=== PATIENT | female | born 1960 | race Caucasian/White ===

== ENCOUNTER 2018-08-07 16:08 | Emergency (ER) | payer MEDICARE ==
[~2018-08-07 16:08] MED LIST: ASPI-1012 PO; ATOR20TA65 PO; GABA-533 PO; LISI-613 PO; METF-446 PO; METO-391 PO; SITA50TA PO; TRAM50TA4 PO
[2018-08-07] MEDS ORDERED: ACETAMINOPHEN EXTRA STRENGTH 500 MG TABLET ONE (16:44)
[2018-08-07] MEDS ORDERED: TETANUS/DIPHTHERIA TOXOID [ADULT] 0.5 ML VIAL IM ONE (16:45)
[2018-08-07] MEDS ORDERED: IBUPROFEN 600 MG TABLET ONE (16:50)
== END 2018-08-07 17:49 | disposition home or self-care (01) ==
LOC: EDH 16:08
DX: S50.11XA Contusion of right forearm, initial encounter (principal); S00.83XA Contusion of other part of head, initial encounter; S39.82XA Other specified injuries of lower back, initial encounter; I10 Essential (primary) hypertension; I25.10 Atherosclerotic heart disease of native coronary artery without angina pectoris; E11.9 Type 2 diabetes mellitus without complications; Z96.641 Presence of right artificial hip joint; Z88.0 Allergy status to penicillin; Z91.048 Other nonmedicinal substance allergy status; Z88.5 Allergy status to narcotic agent; Z79.4 Long term (current) use of insulin; W18.39XA Other fall on same level, initial encounter; Y93.89 Activity, other specified; Y92.89 Other specified places as the place of occurrence of the external cause; Y99.8 Other external cause status
CPT/HCPCS: 90714

== ENCOUNTER 2018-11-27 16:20 | Inpatient (IN) | payer MEDICARE ==
[~2018-11-27] VITALS: Ht 172.7 cm; Wt 76.7 kg
[2018-11-27] MEDS ORDERED: HYDROMORPHONE 1 MG/1 ML AMP ONE ×2 (16:49→20:39)
[2018-11-27] MEDS ORDERED: ONDANSETRON HCL 4 MG/2 ML VIAL ONE ×2 (16:49→19:05)
[2018-11-27 16:57] LABS: BASOPHILS % (AUTO) 1.1 % (0.0-5.0); EOSINOPHILS % (AUTO) 3.8 % (0.0-8.0); HEMATOCRIT 34.8 % (36-48); LYMPHOCYTES % (AUTO) 23.8 % (21.0-51.0); MEAN CORPUSCULAR HEMOGLOBIN 30.8 pg (27.0-33.0); MEAN CORPUSCULAR HGB CONC 34.5 g/dL (32.0-36.0); MEAN CORPUSCULAR VOLUME 89.1 fL (79-99); MONOCYTES % (AUTO) 7.5 % (3.0-13.0); NEUTROPHILS % (AUTO) 63.8 % (40.0-77.0); NUCLEATED RED BLOOD CELLS 0.1 % (0.0-0.19); PLATELET COUNT (AUTO) 251 K/uL (130-400); RED BLOOD CELL COUNT(AUTO) 3.91 MIL/uL (4.00-5.50); RED CELL DISTRIBUTION WIDTH 12.9 % (11.0-15.5); WHITE BLOOD COUNT (AUTO) 7.9 K/uL (4.8-10.8)
[2018-11-27 17:07] LABS: CREATININE 1.1 mg/dL (0.5-1.5); POTASSIUM 4.4 mmol/L (3.5-5.1)
[2018-11-27 17:09] LABS: INR 0.89 (0.85-1.15); PARTIAL THROMBOPLASTIN TIME 26.4 SEC (26.3-35.5); PROTHROMBIN TIME 9.4 SEC (9.6-11.6)
[2018-11-27 17:12] LABS: ALBUMIN 2.8 g/dL (3.5-5.0); BILIRUBIN,TOTAL 0.3 mg/dL (0.2-1.0); TOTAL PROTEIN, SERUM 6.8 g/dL (6.0-8.3)
[2018-11-27] MEDS ORDERED: ACETAMINOPHEN 325 MG TAB PO PRN (19:45)
[2018-11-27] MEDS ORDERED: MORPHINE SULFATE 2 MG/ML 1ML SYG IV PRN (19:45)
[2018-11-27] MEDS: FAMOTIDINE 20MG TAB 20 MG TAB PO SCH (21:00)
[2018-11-27] MEDS ORDERED: FAMOTIDINE 20MG TAB 20 MG TAB PO SCH (21:00)
[2018-11-27 21:28] VITALS: BP 188/96
[2018-11-27] MEDS ORDERED: DEXTROSE 50%-WATER 50 ML DISP.SYRIN IV PRN (21:30)
[2018-11-27] MEDS ORDERED: GLUCAGON 1MG KIT 1 MG ML IM PRN (21:30)
[2018-11-27] MEDS ORDERED: MORPHINE-NS 50 MG/50 ML 50 ML IV ONE (21:45)
[2018-11-27] MEDS ORDERED: INSU100V12 SQ (22:10)
[2018-11-27] MEDS ORDERED: GABA-533 PO (22:11)
[2018-11-27] MEDS ORDERED: GABA800T9 PO (22:11)
[2018-11-27] MEDS ORDERED: ASPI-555 PO (22:11)
[2018-11-27] MEDS ORDERED: MORPHINE-NS 50 MG/50 ML 50 ML IV PRN (22:15)
[2018-11-27] MEDS: HYDROMORPHONE 1 MG/1 ML AMP IV PRN (23:09)
[2018-11-27] MEDS ORDERED: ENOXAPARIN SODIUM 30 MG/0.3 ML SQ ONE (23:10)
[2018-11-27] MEDS: ALPRAZOLAM 0.5 MG TABLET PO PRN (23:11)
[2018-11-27] MEDS: ENOXAPARIN SODIUM 30 MG/0.3 ML SQ SCH (23:15)
[2018-11-27 23:26] VITALS: BP 158/83
[2018-11-28] VITALS (7 sets, daily range): BP systolic 150–193; BP diastolic 75–97
[2018-11-28] MEDS ORDERED: CALCIUM CARBON 500MG CHEW TAB PO PRN (04:15)
[2018-11-28 04:42] LABS: HEMATOCRIT 28.9 % (36-48); MEAN CORPUSCULAR HEMOGLOBIN 30.8 pg (27.0-33.0); MEAN CORPUSCULAR HGB CONC 34.9 g/dL (32.0-36.0); MEAN CORPUSCULAR VOLUME 88.3 fL (79-99); PLATELET COUNT (AUTO) 257 K/uL (130-400); RED BLOOD CELL COUNT(AUTO) 3.27 MIL/uL (4.00-5.50)
[2018-11-28 05:05] LABS: ALBUMIN 2.5 g/dL (3.5-5.0); BILIRUBIN,TOTAL 0.3 mg/dL (0.2-1.0); CREATININE 1.2 mg/dL (0.5-1.5); POTASSIUM 4.3 mmol/L (3.5-5.1)
[2018-11-28] MEDS: INSULIN HUMULIN R 100 UNIT/ML 3ML SQ SCH ×4 (05:39→21:12)
[2018-11-28] MEDS ORDERED: CEFAZOLIN SODIUM 1 GM VIAL IVP PRN (06:00)
[2018-11-28] MEDS ORDERED: GABAPENTIN 100 MG CAPSULE PO SCH (09:00)
[2018-11-28] MEDS ORDERED: ***HM***Metoprolol Succinate 50 MG PO SCH (09:00)
[2018-11-28] MEDS ORDERED: ENOXAPARIN SODIUM 30 MG/0.3 ML SQ SCH (09:00)
[2018-11-28] MEDS: ENOXAPARIN SODIUM 30 MG/0.3 ML SQ SCH ×2 (09:00→21:08)
[2018-11-28] MEDS: ASPIRIN 81MG TAB.CHEW PO SCH (09:50)
[2018-11-28] MEDS: LISINOPRIL 20 MG TABLET PO SCH (09:51)
[2018-11-28] MEDS: FAMOTIDINE 20MG TAB 20 MG TAB PO SCH ×2 (09:51→21:05)
--- NOTE | 2018-11-28 10:01 | NUR ---
MEDICATION NON-ADMINISTRATION DID NOT ADMINISTER SCHEDULED METOPROLOL SUCCINATE 50 MG PO DAILY BECAUSE PATIENT STATES "I DON'T TAKE THAT MEDICATIONS, I STOPPED TAKING IT 2 YEARS AGO BECAUSE IT GAVE ME BAD DIARRHEA." DID NOT ADMINISTER SCHEDULED NEURONTIN 400MG PO AM BECAUSE PATIENT STATES "I ONLY TAKE NEURONTIN 800MG AT NIGHTTIME, I DON'T TAKE ANY IN THE MORNINGS." DID NOT ADMINISTER LOVENOX 30MG SQ DAILY BECAUSE PATIENT STATES "I'M NOT GETTING THAT MEDICATION RIGHT NOW, ITS SUPPOSED TO BE EVERY 24 HOURS AND THEY JUST GAVE IT TO ME LAST NIGHT." I CHECKED DISCONTINUED MEDICATIONS IN EMAR AND DID VERIFY LOVENOX 30 MG SQ GIVEN ON 11/27/18 AT 2316.
--- NOTE | 2018-11-28 13:43 | NUR ---
DCP CM met with pt discussed dc plans. Pt is independent prior to admission, lives at home w/boyfriend Owen Greer. Denies any equipments/services. Pt feels safe to go back home, still drives, boyfriend able to assist with transportation and needs as necessary. Offered poss short term placement for rehab, pt states will think about it after surgery and once MD recommends, prefers to go back home at this time. DC plan to home vs HH/rehab. CM to cont to follow up. Addendum: 11/28/18 at 1346 by J CARLOS MARTIN LVN CM Amended: Links added.
[2018-11-28] MEDS: ATORVASTATIN CALCIUM 20 MG TABLET PO SCH (21:05)
[2018-11-28] MEDS: METOPROLOL TARTRATE 25 MG TAB PO SCH (21:05)
[2018-11-28] MEDS: GABAPENTIN 100 MG CAPSULE PO SCH (21:06)
[2018-11-28] MEDS: INSULIN GLARGINE 100 UNITS/ML 10 ML VIAL SQ SCH (21:13)
[2018-11-28] MEDS: ONDANSETRON HCL 4 MG/2 ML VIAL IV PRN (22:14)
[2018-11-28] MEDS: HYDROMORPHONE 1 MG/1 ML AMP IV PRN (23:17)
[2018-11-29] VITALS (19 sets, daily range): BP systolic 113–178; BP diastolic 51–85
[2018-11-29] MEDS: INSULIN HUMULIN R 100 UNIT/ML 3ML SQ SCH ×4 (06:16→21:00)
[2018-11-29 06:30] LABS: MEAN CORPUSCULAR HEMOGLOBIN 31.2 pg (27.0-33.0); MEAN CORPUSCULAR HGB CONC 34.9 g/dL (32.0-36.0); MEAN CORPUSCULAR VOLUME 89.5 fL (79-99); NUCLEATED RED BLOOD CELLS 0.1 % (0.0-0.19); PLATELET COUNT (AUTO) 227 K/uL (130-400); RED BLOOD CELL COUNT(AUTO) 3.12 MIL/uL (4.00-5.50); RED CELL DISTRIBUTION WIDTH 12.9 % (11.0-15.5); WHITE BLOOD COUNT (AUTO) 9.7 K/uL (4.8-10.8)
[2018-11-29 06:35] LABS: CREATININE 1.1 mg/dL (0.5-1.5); POTASSIUM 3.9 mmol/L (3.5-5.1)
[2018-11-29] MEDS: METOPROLOL TARTRATE 25 MG TAB PO SCH ×2 (08:23→21:17)
[2018-11-29] MEDS: FAMOTIDINE 20MG TAB 20 MG TAB PO SCH ×3 (08:23→21:16)
[2018-11-29] MEDS: ASPIRIN 81MG TAB.CHEW PO SCH (09:00)
[2018-11-29] MEDS: LISINOPRIL 20 MG TABLET PO SCH (09:00)
[2018-11-29] MEDS ORDERED: VANCOMYCIN 1GM+NS 250ML 250 ML IV ONE (12:00)
[2018-11-29] MEDS ORDERED: SODIUM CHLORIDE 0.9% 1000ML 1,000 ML IV ONE (12:03)
[2018-11-29] MEDS ORDERED: MEPERIDINE-PF 25 MG/ML SYG ONE ×2 (12:54→18:27)
[2018-11-29] MEDS ORDERED: METOCLOPRAMIDE 10 MG/2 ML VIAL ONE (13:02)
[2018-11-29] MEDS: ONDANSETRON HCL 4 MG/2 ML VIAL IV PRN (13:05)
[2018-11-29] MEDS ORDERED: MEPERIDINE-PF 25 MG/ML SYG IV SCH (13:15)
[2018-11-29] MEDS ORDERED: FENTANYL CITRATE PF 50 MCG/1 ML 2ML VIAL ONE ×2 (13:37→14:39)
[2018-11-29] MEDS ORDERED: ONDANSETRON HCL 4 MG/2 ML VIAL ONE (13:37)
[2018-11-29] MEDS ORDERED: PROPOFOL 10 MG/ML 20ML VIAL IV ONE (13:37)
[2018-11-29] MEDS ORDERED: DEXAMETHASONE SOD PHOSPHATE 10MG/ML 1ML VIAL ONE (13:37)
[2018-11-29] MEDS ORDERED: MIDAZOLAM HCL 1 MG/ML 2ML VIAL ONE (13:37)
[2018-11-29] MEDS ORDERED: LIDOCAINE PF 2% 5ML ABBOJECT ONE (13:37)
[2018-11-29] MEDS ORDERED: ROPIVACAINE 0.5% 5MG/ML 30ML IJ ONE (13:45)
[2018-11-29] MEDS ORDERED: ROCURONIUM 10MG/1ML SYR 10 MG/ML ML ONE (13:49)
[2018-11-29] MEDS ORDERED: EPHEDRINE SULFATE 50 MG/ML AMPULE ONE (13:50)
[2018-11-29] MEDS ORDERED: VANCOMYCIN HCL 1 GM VIAL ONE (14:23)
[2018-11-29] MEDS ORDERED: TRANEXAMIC ACID 1000MG/10ML IV ONE (14:23)
[2018-11-29] MEDS ORDERED: GLYCOPYRROLATE 1 MG/5 ML SYRINGE ONE (17:26)
[2018-11-29] MEDS ORDERED: NEOSTIGMINE 5MG/5ML SYR IV ONE (17:26)
[2018-11-29] MEDS ORDERED: POTASSIUM CHLORIDE 20 MEQ ERTAB PO PRN (17:30)
[2018-11-29] MEDS ORDERED: CALCIUM CARBONATE 500 MG TABLET PO PRN (17:30)
[2018-11-29] MEDS ORDERED: POTASSIUM CHLORIDE 20MEQ/100ML 100 ML IV PRN (17:30)
[2018-11-29] MEDS ORDERED: KETOROLAC TROMETHAMINE 15MG/ML IV PRN (17:30)
[2018-11-29] MEDS ORDERED: LIDOCAINE HCL-MPF 1% 2ML VIAL IVP PRN (17:30)
[2018-11-29] MEDS ORDERED: TEMAZEPAM 15 MG CAPSULE PO PRN (17:30)
[2018-11-29] MEDS ORDERED: DIPHENHYDRAMINE HCL 25 MG CAPSULE PO PRN (17:30)
[2018-11-29] MEDS ORDERED: DiphenhydrAMINE HCL 50 MG/ML VIAL IVP PRN (17:30)
[2018-11-29] MEDS ORDERED: POTASSIUM CHLORIDE 10% ELIXIR 20 MEQ/15 ML UDCUP PO PRN (17:30)
[2018-11-29] MEDS ORDERED: HYDROCODONE/ACETAMINOPHEN 5/325 MG TAB PO PRN (17:30)
[2018-11-29] MEDS ORDERED: FERROUS FUMARATE 324 MG TABLET PO PRN (17:30)
--- NOTE | 2018-11-29 20:15 | NUR ---
NON COMPLAINT PATIENT REFUSING POST OP VITAL SIGNS MEDS AND WANTING TO GET OUT OF BED TO GO SMOKE. DR SHIPMAN MADE AWARE PATIENT STATUS AND OF CURSING AND BEING VERY RUDE TO STAFF. ORDERS GIVEN AND CARRIED OUT TO STOP ALL PAIN MEDS AT THIS TIME.
--- NOTE | 2018-11-29 20:37 | NUR ---
SMOKING PATIENT STILL BEING VERY RUDE AND CURSING TO STAFF AND MYSELF WANTING TO GO SMOKE ANT THREATENING TO SMOKE IN THE ROOM. DR SHIPMAN INFORMED AND WILL COME STEAK TO PATIENT INSTRUCTOR PAINTING AND SECURITY NOTIFIED.
--- NOTE | 2018-11-29 20:48 | NUR ---
AMA PATIENT STATES SHE WILL DO WHAT EVER SHE WANTS TO DO AND IF SHE WANTS TO LEAVE THE HOSPITAL SHE WILL. I OFFERED HER TO SING AMA FORM AND LEAVE AGAINST MEDICAL ADVICE BUT SHE REFUSED TO SIGNS FORM AND TOLD ME AND THE PUBLIC SERVICES ASSISTANT TO "FUCKING LEAVE HER ROOM". PATIENT ADVISED TO COOPERATE WITH STAFF FOR HER HEALTH AND SHE JUST CONTINUED TO CURSE AT US.
[2018-11-29] MEDS: INSULIN GLARGINE 100 UNITS/ML 10 ML VIAL SQ SCH (21:00)
[2018-11-29] MEDS: GABAPENTIN 100 MG CAPSULE PO SCH (21:17)
[2018-11-29] MEDS: ATORVASTATIN CALCIUM 20 MG TABLET PO SCH (21:17)
--- NOTE | 2018-11-29 21:20 | NUR ---
DR UMBERTO SHIPMAN IN TO SEE PATIENT AND WAS ABLE TO GET PATIENT TO TAKE MEDICATIONS BUT IS NOW CLAIMING THAT SHE IS MISSING A 1/2 KARAT GAYE RING AND OTHER THINGS FORM HER PURSE. NO PAPER WORK IN CHART FROM SECURITY SO THEY DO NOT HAVE ANY BELONGINGS. SECURITY AND DR SHIPMAN SPOKE TO PATIENT, BUT SHE IS STILL BEING VERY RUDE AND CURSING EVEN TO SECURITY AND RUDE TO DR SHIPMAN.
--- NOTE | 2018-11-29 22:00 | NUR ---
SMOKING DR SHIPMAN ALLOWED PATIENT TO GO SMOKE ONLY IF SHE WAS COMPLIANT WITH HER TREATMENT IN THE HOSPITAL. PATIENT STATES SHE WILL DO INSTRUCTED. PATIENT NOW MORE CALM AND RESPECTFUL.
[2018-11-29] MEDS: VANCOMYCIN 1GM+NS 250ML 250 ML IV SCH (22:31)
[2018-11-29] MEDS: SODIUM CHLORIDE 0.9% 1000ML 1,000 ML IV SCH (22:32)
[2018-11-29] MEDS: ALPRAZOLAM 0.5 MG TABLET PO PRN (23:18)
[2018-11-29] MEDS: HYDROCODONE/ACETAMINOPHEN 5/325 MG TAB PO PRN (23:19)
[2018-11-30] MEDS: SODIUM CHLORIDE 0.9% 1000ML 1,000 ML IV SCH ×2 (02:53→13:24)
[2018-11-30 03:27] VITALS: BP 173/89
[2018-11-30 06:20] LABS: HEMATOCRIT 23.4 % (36-48); MEAN CORPUSCULAR HEMOGLOBIN 30.4 pg (27.0-33.0); MEAN CORPUSCULAR HGB CONC 34.4 g/dL (32.0-36.0); MEAN CORPUSCULAR VOLUME 88.3 fL (79-99); PLATELET COUNT (AUTO) 227 K/uL (130-400); RED BLOOD CELL COUNT(AUTO) 2.65 MIL/uL (4.00-5.50); RED CELL DISTRIBUTION WIDTH 12.8 % (11.0-15.5); WHITE BLOOD COUNT (AUTO) 14.1 K/uL (4.8-10.8)
[2018-11-30] MEDS: INSULIN HUMULIN R 100 UNIT/ML 3ML SQ SCH ×4 (06:27→21:00)
[2018-11-30 06:46] LABS: CREATININE 1.2 mg/dL (0.5-1.5); POTASSIUM 4.2 mmol/L (3.5-5.1)
[2018-11-30 08:00] VITALS: BP 134/76
[2018-11-30] MEDS: LISINOPRIL 20 MG TABLET PO SCH (08:14)
[2018-11-30] MEDS: ASPIRIN 81MG TAB.CHEW PO SCH (08:14)
[2018-11-30] MEDS: FAMOTIDINE 20MG TAB 20 MG TAB PO SCH ×4 (08:14→19:31)
[2018-11-30] MEDS: METOPROLOL TARTRATE 25 MG TAB PO SCH ×2 (08:14→19:32)
[2018-11-30] MEDS: POLYETHYLENE GLYCOL 3350 17 GM POWD.PACK PO SCH ×2 (08:14→08:53)
--- NOTE | 2018-11-30 09:00 | NUR ---
REFUSED MIRALAX LBM ON 11/27/18. PER PATIENT, REFUSED MIRALAX BECAUSE "IT WILL GIVE HER THE RUNS". PATIENT EDUCATED ON POSSIBLE CONSTIPATION FROM PAIN MANAGEMENT MEDICATIONS, VERBALIZED UNDERSTANDING. PT REFUSING MIRALAX, DR. SHIPMAN MADE AWARE. Addendum: 11/30/18 at 1025 by OK FLORENCE RN RN Amended: Links added.
[2018-11-30 11:00] VITALS: BP 159/77
[2018-11-30] MEDS ORDERED: EPOETIN ALFA 10,000 UNIT/ML VIAL SQ SCH (11:45)
[2018-11-30] MEDS ORDERED: COMPOUND IV MISC 1 EACH IVSOLN MISC PRN (12:00)
[2018-11-30] MEDS: PSYLLIUM SEED 1 EACH PACKET PO SCH (12:00)
--- NOTE | 2018-11-30 12:00 | NUR ---
CM Note: Pt declined placement CM met with pt discussed MD recommendation for rehab, pt stated can you guarantee I will be approved? With Medicare A&B most of the time if it is within the guidelines it will be covered but we don't know until we send referral to facility and receiving facility check benefits. Pt asked is ambulance going to be covered also? Informed pt it should be covered but we can't guarantee until request is sent. At this time pt refused to sign JOE. Primary nurse aware. CM to cont to follow up.
[2018-11-30] MEDS: ONDANSETRON HCL 4 MG/2 ML VIAL IV PRN (12:10)
[2018-11-30] MEDS: VANCOMYCIN 1GM+NS 250ML 250 ML IV SCH (12:13)
[2018-11-30] MEDS: APIXABAN 2.5 MG TABLET PO SCH ×2 (12:15→19:30)
[2018-11-30 16:00] VITALS: BP 127/62
--- NOTE | 2018-11-30 16:45 | NUR ---
CM Note: Pt signed JOE for STR CM met with pt and Dr Mitchell in the room. MD explained purpose of rehab recs, pt again asked is the ambulance covered? Informed pt usually it is covered but we don't know until request is sent. Pt agreeable for rehab, JOE signed for STR at this time. Primary nurse aware. CM to cont to follow up.
[2018-11-30 19:00] VITALS: BP 144/71
[2018-11-30] MEDS: ATORVASTATIN CALCIUM 20 MG TABLET PO SCH (19:30)
[2018-11-30] MEDS: GABAPENTIN 100 MG CAPSULE PO SCH (19:30)
[2018-11-30] MEDS: IRON SUCROSE COMPLEX 100 MG in SODIUM CHLORIDE 0.9% 50 ML IV SCH (19:31)
[2018-11-30] MEDS: HYDROCODONE/ACETAMINOPHEN 5/325 MG TAB PO PRN (20:24)
[2018-11-30] MEDS: ALPRAZOLAM 0.5 MG TABLET PO PRN (21:08)
[2018-11-30] MEDS: INSULIN GLARGINE 100 UNITS/ML 10 ML VIAL SQ SCH (21:21)
[2018-12-01 03:00] VITALS: BP 149/78
[2018-12-01 05:30] LABS: HEMATOCRIT 23.9 % (36-48); MEAN CORPUSCULAR HEMOGLOBIN 31.4 pg (27.0-33.0); MEAN CORPUSCULAR VOLUME 89.7 fL (79-99); PLATELET COUNT (AUTO) 226 K/uL (130-400); RED BLOOD CELL COUNT(AUTO) 2.67 MIL/uL (4.00-5.50); RED CELL DISTRIBUTION WIDTH 13.3 % (11.0-15.5)
[2018-12-01 05:44] LABS: CREATININE 1.3 mg/dL (0.5-1.5); POTASSIUM 3.7 mmol/L (3.5-5.1)
[2018-12-01] MEDS: INSULIN HUMULIN R 100 UNIT/ML 3ML SQ SCH ×3 (05:56→21:42)
[2018-12-01 07:42] VITALS: BP 139/71
[2018-12-01] MEDS: POLYETHYLENE GLYCOL 3350 17 GM POWD.PACK PO SCH (09:00)
[2018-12-01] MEDS: FAMOTIDINE 20MG TAB 20 MG TAB PO SCH ×4 (09:00→21:23)
[2018-12-01] MEDS: IRON SUCROSE COMPLEX 100 MG in SODIUM CHLORIDE 0.9% 50 ML IV SCH (11:06)
[2018-12-01] MEDS: ASPIRIN 81MG TAB.CHEW PO SCH (11:07)
[2018-12-01] MEDS: METOPROLOL TARTRATE 25 MG TAB PO SCH ×2 (11:07→21:23)
[2018-12-01] MEDS: APIXABAN 2.5 MG TABLET PO SCH ×2 (11:07→21:22)
[2018-12-01] MEDS: LISINOPRIL 20 MG TABLET PO SCH (11:08)
[2018-12-01 11:26] VITALS: BP 124/65
[2018-12-01] MEDS: PSYLLIUM SEED 1 EACH PACKET PO SCH (12:00)
[2018-12-01 16:14] VITALS: BP 121/62
--- NOTE | 2018-12-01 17:00 | NUR ---
cm note setup for EMs transport to [facility] [place] [place], informed dr cordero. also faxed clincal info for request for 3 in 1 chair if needed after [facility]. pt updated. pt states she already has a walker at home. no other dc needs.
[2018-12-01] MEDS ORDERED: BISACODYL 5 MG TABLET.DR PO PRN (17:30)
--- NOTE | 2018-12-01 17:30 | NUR ---
Changed dressing and removed hemovac from right knee. No resistance felt upon removal of drain. Drain measured 18 cm to tip. Tip appears intact, not jagged or torn. Incision intact, nicole intact, skin edges well approximated. No bleeding noted to eithrt site. Painted drain site and incision with betadine, covered with sterile 4x4's and tape. Pt tolerated well.
[2018-12-01 20:00] VITALS: BP 134/65
[2018-12-01] MEDS: ATORVASTATIN CALCIUM 20 MG TABLET PO SCH (21:22)
[2018-12-01] MEDS: GABAPENTIN 100 MG CAPSULE PO SCH (21:24)
[2018-12-01] MEDS: INSULIN GLARGINE 100 UNITS/ML 10 ML VIAL SQ SCH (21:42)
[2018-12-01] MEDS: ALPRAZOLAM 0.5 MG TABLET PO PRN (23:17)
[2018-12-02 00:03] VITALS: BP 117/71
[2018-12-02 04:00] VITALS: BP 112/67
[2018-12-02 05:03] LABS: HEMATOCRIT 21.2 % (36-48); MEAN CORPUSCULAR HEMOGLOBIN 30.2 pg (27.0-33.0); MEAN CORPUSCULAR HGB CONC 33.8 g/dL (32.0-36.0); MEAN CORPUSCULAR VOLUME 89.4 fL (79-99); PLATELET COUNT (AUTO) 223 K/uL (130-400); RED BLOOD CELL COUNT(AUTO) 2.37 MIL/uL (4.00-5.50); RED CELL DISTRIBUTION WIDTH 13.1 % (11.0-15.5)
[2018-12-02 05:12] LABS: CREATININE 1.4 mg/dL (0.5-1.5); POTASSIUM 3.6 mmol/L (3.5-5.1)
[2018-12-02] MEDS: INSULIN HUMULIN R 100 UNIT/ML 3ML SQ SCH ×3 (06:33→16:30)
[2018-12-02 07:03] VITALS: BP 131/68
[2018-12-02] MEDS ORDERED: FERR324T10 PO (08:22)
[2018-12-02] MEDS ORDERED: METO25 PO (08:22)
[2018-12-02] MEDS ORDERED: MIRAUD PO (08:22)
[2018-12-02] MEDS ORDERED: HYDR-2132 PO (08:22)
[2018-12-02] MEDS ORDERED: APIX2.5T PO (08:22)
[2018-12-02] MEDS: FAMOTIDINE 20MG TAB 20 MG TAB PO SCH ×2 (09:00→10:11)
[2018-12-02] MEDS: POLYETHYLENE GLYCOL 3350 17 GM POWD.PACK PO SCH (09:00)
[2018-12-02] MEDS: IRON SUCROSE COMPLEX 100 MG in SODIUM CHLORIDE 0.9% 50 ML IV SCH (09:00)
[2018-12-02] MEDS: METOPROLOL TARTRATE 25 MG TAB PO SCH (10:11)
[2018-12-02] MEDS: APIXABAN 2.5 MG TABLET PO SCH (10:11)
[2018-12-02] MEDS: ASPIRIN 81MG TAB.CHEW PO SCH (10:11)
[2018-12-02] MEDS: LISINOPRIL 20 MG TABLET PO SCH (10:13)
[2018-12-02 11:12] VITALS: BP 140/68
[2018-12-02] MEDS: PSYLLIUM SEED 1 EACH PACKET PO SCH (11:54)
[2018-12-02 16:05] VITALS: BP 145/73
[2018-12-02 16:38] LABS: HEMATOCRIT 24.9 % (36-48)
--- NOTE | 2018-12-02 17:00 | NUR ---
Report called to [facility] nurse Ruby Sams RN. Discharge teaching completed in the room. Emphasis on all discharge orders for activity, medications, and follow up. Pt understands she must call for 10 day post discharge follow up with Dr. Maher. Dressing changed to right thigh. 33 intact nicole. No active drainage. No redness. Painted with betadine and dressed with sterile 4x4's and tape. PIV removed, tip intact. Hemostasis achieved and dressed with sterile 2x2 and band aid . Pt transported the [facility] via EMS stretcher. Stated she will call her significant other to notify. Pt in stable condition at time of discharge .
[2018-12-02] MEDS ORDERED: BISACODYL 10 MG SUPP.RECT RC PRN (17:30)
== END 2018-12-02 17:00 | DRG 480 ==
LOC: EDH 16:20 → EDHIP 19:32 → 4AH 20:49
PROVIDERS: ADMIT Internal Medicine; ATTEND Internal Medicine
PROC: 0QS804Z Reposition Right Femoral Shaft with Internal Fixation Device, Open Approach (ICD-10-PCS; principal; 2018-11-29 13:35)
PROC: 30233N1 Transfusion of Nonautologous Red Blood Cells into Peripheral Vein, Percutaneous Approach (ICD-10-PCS; 2018-11-29 13:35)
DX: M97.9XXA Periprosthetic fracture around unspecified internal prosthetic joint, initial encounter (principal); S72.301A Unspecified fracture of shaft of right femur, initial encounter for closed fracture; E44.0 Moderate protein-calorie malnutrition; E86.0 Dehydration; E11.65 Type 2 diabetes mellitus with hyperglycemia; I10 Essential (primary) hypertension; W01.0XXA Fall on same level from slipping, tripping and stumbling without subsequent striking against object, initial encounter; I25.10 Atherosclerotic heart disease of native coronary artery without angina pectoris; F17.200 Nicotine dependence, unspecified, uncomplicated; Z96.649 Presence of unspecified artificial hip joint; I25.2 Old myocardial infarction; Z79.4 Long term (current) use of insulin; Z79.899 Other long term (current) drug therapy; Z88.5 Allergy status to narcotic agent; Z88.0 Allergy status to penicillin; Z68.25 Body mass index [BMI] 25.0-25.9, adult; Y93.89 Activity, other specified; Y92.098 Other place in other non-institutional residence as the place of occurrence of the external cause; Y99.8 Other external cause status; Z95.5 Presence of coronary angioplasty implant and graft; Z83.3 Family history of diabetes mellitus; Z82.49 Family history of ischemic heart disease and other diseases of the circulatory system
CPT/HCPCS: 36415; 71045; 73552; 80048; 80053; 82550; 82948; 84484; 85014; 85018; 85025; 85027; 85610; 85730; 86850; 86900; 86901; 86922; 93005; 97039; C1713; G0378; J0885; J1100; J1170; J1650; J1756; J1815; J2001; J2175; J2250; J2270; J2405; J2704; J2710; J2765; J2795; J3010; J3370; J3490; J7030; P9016